=== PATIENT | male | born 2000 | race Two or more races ===

== ENCOUNTER 2022-01-08 10:40 | Emergency (ER) | payer OTHER ==
[~2022-01-08] VITALS: Ht 180.3 cm; Wt 81.6 kg
--- NOTE | 2022-01-08 11:00 | NUR ---
BIBS C/O testicular pain x 1 month
[2022-01-08] MEDS ORDERED: LIDOCAINE HCL/MPF 1% 30 ML VIAL IJ ONE (12:23)
[2022-01-08] MEDS ORDERED: CEFTRIAXONE 500 MG VIAL ONE (12:23)
[2022-01-08] MEDS: CEFTRIAXONE 1 G VIAL IM ONE (12:25)
--- NOTE | 2022-01-08 12:34 | NUR ---
URINE SAMPLE SENT TO LAB
[2022-01-08] MEDS ORDERED: IBUP-1955 PO (13:28)
[2022-01-08] MEDS ORDERED: DOXY100C2 PO (13:28)
[2022-01-08 13:38] LABS: BILIRUBIN,URINE NEGATIVE (NEGATIVE); COLOR,URINE YELLOW (YELLOW); LEUKOCYTE ESTERASE ,URINE NEGATIVE (NEGATIVE); NITRITE, URINE NEGATIVE (NEGATIVE); PH,URINE 8.5 (5.0-8.0); PROTEIN,URINE NEGATIVE (NEGATIVE); UGLUCOSE NEGATIVE (NEGATIVE); UROBILINOGEN,URINE 0.2 EU/dL (0.2)
--- NOTE | 2022-01-08 13:39 | NUR ---
Patient discharged to home in stable condition. Written and verbal after care instructions given. Patient verbalizes understanding of instruction.
[2022-01-08 13:40] VITALS: BP 135/80
== END 2022-01-08 13:35 | disposition home or self-care (01) ==
LOC: ER 10:51
DX: A64 Unspecified sexually transmitted disease (principal); N50.82 Scrotal pain; F17.200 Nicotine dependence, unspecified, uncomplicated
CPT/HCPCS: 99284; 96372; 76870; 81003; 87491; 87591; J0696; J3490

== ENCOUNTER 2024-01-13 17:42 | Emergency (ER) | payer OTHER ==
[~2024-01-13] VITALS: Ht 182.9 cm; Wt 113.4 kg
[~2024-01-13 17:42] MED LIST: DOXY100C2 PO; IBUP-1955 PO
[2024-01-13 18:45] VITALS: BP 157/90; TEMP 98.4; O2SAT 100
[2024-01-13] MEDS ORDERED: OXYMETAZOLINE HCL NASAL SPRAY 30 ML BOTTLE NS ONE (19:56)
[2024-01-13] MEDS: OXYMETAZOLINE HCL NASAL SPRAY 30 ML BOTTLE NS ONE (20:00)
[2024-01-13 20:18] LABS: BASOPHILS # (AUTO) 0.1 K/uL (0.0-0.2); BASOPHILS % (AUTO) 1.3 % (0.0-2.0); EOSINOPHILS # (AUTO) 0.2 K/uL (0.0-0.7); EOSINOPHILS % (AUTO) 3.6 % (0.0-6.0); HEMATOCRIT 45 % (39-51); HEMOGLOBIN 15.5 g/dL (13.5-17.5); LYMPHOCYTES # (AUTO) 2.5 K/uL (0.8-4.8); LYMPHOCYTES % (AUTO) 36.2 % (20.0-44.0); MEAN CORPUSCULAR HEMOGLOBIN 31 PG (26.0-33.0); MEAN CORPUSCULAR HGB CONC 34 g/dl (31.0-36.0); MEAN CORPUSCULAR VOLUME 90 fL (80-96); MONOCYTES # (AUTO) 0.6 K/uL (0.1-1.30); MONOCYTES % (AUTO) 8.5 % (2.0-12.0); NEUTROPHILS # (AUTO) 3.4 K/uL (1.8-8.9); NEUTROPHILS % (AUTO) 50.4 % (43.0-81.0); PLATELET COUNT (AUTO) 211 K/uL (150-450); RED BLOOD CELL COUNT(AUTO) 5.01 MIL/uL (4.5-6.0); RED CELL DISTRIBUTION WIDTH 14.1 % (11.5-15.0); WHITE BLOOD COUNT (AUTO) 6.8 K/uL (4.3-11.0)
[2024-01-13 20:22] LABS: CREATININE 0.9 mg/dL (0.6-1.3)
[2024-01-13 20:25] LABS: INR 0.97 (0.91-1.10); PARTIAL THROMBOPLASTIN TIME 26.3 SEC (24.3-34.3); PROTHROMBIN TIME 10.3 SECS (9.2-11.1)
== END 2024-01-13 21:22 | disposition home or self-care (01) ==
LOC: ER 17:45
DX: R04.0 Epistaxis (principal); R42 Dizziness and giddiness; F17.290 Nicotine dependence, other tobacco product, uncomplicated
CPT/HCPCS: 36415; 80048-TC; 85025-TC; 85730-TC